=== PATIENT | female | born 1945 | race Caucasian/White ===

== ENCOUNTER → 2020-05-24 14:41 | Outpatient (CLI) | payer MEDICARE, SELFPAY ==
--- NOTE | 2020-05-24 14:50 | CT_ITS ---
STUDY: CT LEFT KNEE LOWER EXTREMITY REASON FOR EXAM: Left knee arthritis, surgical planning. TECHNIQUE: Transaxial CT imaging of the lower extremity was performed. Coronal and sagittal images were reformatted. Individualized dose optimization techniques were used for this CT. COMPARISON: None. FINDINGS: Knee: There are marginal and surface osteophytes of the medial femoral condyle without significant joint space narrowing of the medial femorotibial compartment. There are marginal osteophytes and severe joint space narrowing of the lateral femorotibial compartment (coronal reconstruction 32). There are marginal osteophytes and moderate to severe joint space narrowing of the patellofemoral articulation (sagittal reconstruction 48). Normal proximal tibiofibular articulation. There is a joint effusion. The quadriceps tendon is grossly normal. The patellar tendon is grossly normal. Normal Hoffa''s fat pad. There are intra-articular bodies. Hip: There is mild joint space narrowing of the superior lateral left hip joint (coronal reconstruction 70). There are degenerative changes of the pubic symphysis and left sacroiliac joint. Ankle: Normal tibiotalar and posterior subtalar articulations. There is mild joint space narrowing of the talonavicular articulation (sagittal reconstruction 23). Normal calcaneocuboid articulation. There are marginal osteophytes and joint space narrowing of the navicular-cuneiform articulations (sagittal reconstructions 21-27). There is a plantar calcaneal enthesophyte. CT/Extremity Lower without Contra IMPRESSION: Arthrosis of the left knee with intra-articular bodies and joint effusion. Mild arthrosis of the left hip joint.. Arthrosis of the talonavicular and navicular-cuneiform articulations. Electronically Signed: Robby Ruiz MD at 15:22 EDT Tel , Service support ,
== END ==
PROVIDERS: PCP Internal Medicine; Referring Provider Orthopaedic Surgery; Visit Provider Orthopaedic Surgery
DX: M17.12 Unilateral primary osteoarthritis, left knee (principal)
CPT/HCPCS: 73700

== ENCOUNTER 2020-06-13 09:18 | Observation (INO) | payer MEDICARE, SELFPAY ==
--- NOTE | 2020-05-25 10:14 | EKG12_ITS ---
Test Reason : PRE OP Blood Pressure : / mmHG Vent. Rate : 069 BPM Atrial Rate : 069 BPM P-R Int : 202 ms QRS Dur : 074 ms QT Int : 390 ms P-R-T Axes : 032 -39 040 degrees QTc Int : 417 ms Normal sinus rhythm Left axis deviation Nonspecific ST abnormality Abnormal ECG Confirmed by KENTON RAMOS, CLEOPATRA ([id number]), editor newspaper ALISIA LINDSAY ([id number]) on 05/30/2020 8:26:14 A M Referred By: Barrington Coulter Confirmed By:KARLA FUNG MD
[2020-05-25 11:11] LABS: Absolute Lymphocyte Count 0.74 X10^3/uL (0.83-4.51); Absolute Neutrophil Count 2.3 X10^3/uL (2.0-7.7); Basophil# 0.02 X10^3/uL; Basophil% 0.6 % (0-1); Eosinophil# 0.22 X10^3/uL; Eosinophils% 6.1 % (0-5); Hematocrit 39.6 % (37-47); Hemoglobin 12.9 g/dL (12.0-15.0); Lymphocyte # 0.74 X10^3/ul (4.0); Lymphocyte % 20.4 % (19-41); Mean Corp Hgb Conc 32.6 g/dL (32-36); Mean Corpuscular Hgb 29.6 pg (27.0-32.0); Mean Corpuscular Volume 90.8 fL (81-99); Mean Platelet Vol. 11.2 fl (6.2-12.0); Monocyte# 0.34 X10^3/uL; Monocyte% 9.4 % (0-10); NRBC Flagged by Analyzer 0 % (0-5); Neutrophil % 63.2 % (47-70); Platelet Count 174 K/mm3 (150-450); RBC Distribution Width CV 12.9 % (11.6-14.6); RBC Distribution Width SD 42.8 fl (35.1-43.9); Red Blood Count 4.36 M/mm3 (4.2-5.4); White Blood Count 3.6 K/mm3 (4.4-11.0)
[2020-05-25 11:54] LABS: Anion Gap 3 (5-15); BUN 16 mg/dL (7-18); BUN/Creat Ratio 18.5 RATIO (10-20); Calcium,Total 9.5 mg/dL (8.5-10.1); Chloride 104 mmol/L (98-107); Creatinine, Serum 0.86 mg/dL (0.55-1.02); EST Glomerular Filtration Rate 68 mL/min (>60); Est Glom Filt Rate - Afr Amer 82 mL/min (>60); Glucose 88 mg/dL (74-106); Potassium 3.6 mmol/L (3.5-5.1); Sodium Level 139 mmol/L (136-145)
[2020-06-13] VITALS (12 sets, daily range): BP systolic 110–160; BP diastolic 59–87; PULSE 68–91; RESP 16–18; TEMP 36.2–36.8; O2SAT 95–100; BMI 39.6
[2020-06-13] MEDS: Lactated Ringers 1,000 ML 100 ML IV (05:53)
[2020-06-13] MEDS: Acetaminophen 500 MG Tablet 1000 MG PO ×3 (06:27→21:08)
[2020-06-13] MEDS: Gabapentin 600 MG Tablet PO (06:27)
[2020-06-13 06:40] LABS: Bedside Glucose 91 mg/dL (70-110)
--- NOTE | 2020-06-13 07:30 | KNEE_PTH ---
PATIENT: IZAIAH ARREDONDO LOC: MS3 U#:[id number] AGE/SX: 75/F ROOM: [facility] RE06/13/[address]: Dr. Barrington Coulter DO : 1945 BED: 1 DIS: 06/14/2020 SPEC #: [id number] RECD: 06/13/20 10:39 STATUS: MICHELLE REQ #: [id number] [place]: 06/13/20 07:[address]: Barrington Coulter DEPT: SURGICAL PATHOLOGY RECD BY: Mary Lou Worley ENTERED: 06/13/20 13:20 SP TYPE: TOTAL KNEE OTHR DR: Dr. Bambi Mariscal MD Tissues: Knee, NOS Procedures: Decalcification bone/plaque Surgery Specimen Level IV HEADER OPERATION: ERAS, total knee replacement robotic arm assist PRE-OP DIAGNOSIS: Unilateral primary osteoarthritis left knee TISSUE SUBMITTED: Bone and soft tissue left knee MICROSCOPIC DIAGNOSIS Bone and soft tissue of left knee, total knee resection: Consistent with severe degenerative joint disease. AM:gm 06/16/20 MICROSCOPIC DESCRIPTION Slides are reviewed. GROSS DESCRIPTION Received is one container designated bone and soft tissue left knee. The specimen consists of multiple fragments of mcgregor-yellow bone measuring in aggregate 12 x 11 x 3 cm. A number of bony fragments contain articular surfaces consistent with tibial plateau and femoral condyle and displaying prominent osteophyte formation, eburnation, and bone erosion. Operation Specialist sections are submitted in two cassettes after decalcification. / LAYLA:gm 06/13/20 TC:5 CPT: 68879, 88526
[2020-06-13] MEDS: Cefazolin 2 GM in 0.9% Normal Saline 100 ML IV (07:36)
[2020-06-13] MEDS: Lactated Ringers 1,000 ML 125 ML IV (10:15)
--- NOTE | 2020-06-13 10:32 | OP.PCM_ITS ---
Report of Operation Date of Procedure: 06/13/20 Pre-Operative Diagnosis: OA with valgus deformity left knee Post-Operative Diagnosis: same Surgery/Procedure Performed:: Left TKR internal affairs investigator: Mary Ann Avila Type of Anesthesia:: Spinal Anesthesiologist: Carlos Lai Specimen's removed: bone Estimated Blood Loss (mL): 20 cc - Admit VTE Documentation VTE Present on Admission: No VTE Mechan Device Prophylaxis: SCD's, Thigh High CHERRI Hose VTE Pharm Prophylaxis ordered?: Yes
--- NOTE | 2020-06-13 10:50 | RAD_ITS ---
STUDY: X-RAY - LEFT KNEE REASON FOR EXAM: Female, 75 years old. POST OP TECHNIQUE: 2 view(s) of the knee. COMPARISON: None. FINDINGS: Normal visualized distal femur. Normal visualized proximal tibia and fibula. Normal proximal tibiofibular articulation. The patient is status post total knee replacement. There is good alignment. Postoperative soft tissue changes. RAD/Knee 1 or 2 Views IMPRESSION: Status post total knee replacement. There is good alignment. Postoperative soft tissue changes Electronically Signed: Jone Jackson, at 11:27 EST , Service support ,
[2020-06-13 11:14] LABS: Hematocrit 36.3 % (37-47); Hemoglobin 11.7 g/dL (12.0-15.0); Mean Corp Hgb Conc 32.2 g/dL (32-36); Mean Corpuscular Hgb 29.8 pg (27.0-32.0); Mean Corpuscular Volume 92.6 fL (81-99); Mean Platelet Vol. 10.7 fl (6.2-12.0); Platelet Count 150 K/mm3 (150-450); RBC Distribution Width CV 12.6 % (11.6-14.6); RBC Distribution Width SD 42.5 fl (35.1-43.9); Red Blood Count 3.92 M/mm3 (4.2-5.4); White Blood Count 3.9 K/mm3 (4.4-11.0)
[2020-06-13] MEDS: Senna/Docusate Sodium 1 Tablet 2 TABLET PO ×2 (11:51→21:08)
[2020-06-13] MEDS: hydroCHLOROthiazide 25 MG Tablet PO (11:51)
[2020-06-13] MEDS: Multivitamins,Ther W-Minerals Tablet 1 TABLET PO (11:52)
[2020-06-13] MEDS: Aspirin 81 MG TAB.CHEW PO ×2 (11:52→17:05)
[2020-06-13] MEDS: Calcium Carbonate 500 MG Tablet PO ×2 (12:45→17:05)
[2020-06-13] MEDS: Cefazolin 1 GM/50 ML BAG IV ×2 (13:27→21:08)
[2020-06-13] MEDS: oxyCODONE 5 MG Tablet PO (18:30)
[2020-06-13] MEDS: BENZOCAINE/MENTHOL 1 LOZENGE MUCOUS MEM (21:42)
[2020-06-14 00:35] VITALS: BP 124/54; PULSE 67; RESP 18; TEMP 36.8; O2SAT 96
[2020-06-14] MEDS: oxyCODONE 5 MG Tablet PO ×4 (01:03→14:12)
[2020-06-14 04:25] VITALS: BP 158/79; PULSE 72; RESP 18; TEMP 36.6; O2SAT 97
[2020-06-14] MEDS: Acetaminophen 500 MG Tablet 1000 MG PO ×2 (05:05→14:13)
[2020-06-14 05:58] LABS: Hematocrit 31.6 % (37-47); Hemoglobin 10.3 g/dL (12.0-15.0); Mean Corp Hgb Conc 32.6 g/dL (32-36); Mean Corpuscular Volume 92.1 fL (81-99); Mean Platelet Vol. 11.5 fl (6.2-12.0); Platelet Count 120 K/mm3 (150-450); RBC Distribution Width CV 12.6 % (11.6-14.6); RBC Distribution Width SD 42.2 fl (35.1-43.9); Red Blood Count 3.43 M/mm3 (4.2-5.4); White Blood Count 4.9 K/mm3 (4.4-11.0)
[2020-06-14 06:22] LABS: Anion Gap 5 (5-15); BUN 17 mg/dL (7-18); BUN/Creat Ratio 21.8 RATIO (10-20); Calcium,Total 8.2 mg/dL (8.5-10.1); Chloride 100 mmol/L (98-107); Creatinine, Serum 0.78 mg/dL (0.55-1.02); EST Glomerular Filtration Rate 76 mL/min (>60); Est Glom Filt Rate - Afr Amer 93 mL/min (>60); Estimated Creatinine Clearance 36.68 ml/min; Glucose 119 mg/dL (74-106); Potassium 3.8 mmol/L (3.5-5.1); Sodium Level 134 mmol/L (136-145)
--- NOTE | 2020-06-14 07:46 | PN.ORTHO_ITS ---
Subjective: Patient sitting at bedside eating breakfast. Patient states pain has been very well managed. Patient denies chest pain, shortness of breath, calf pain, nausea vomiting. Patient states she is ready for discharge home. Objective: Dressings clean dry intact. Negative signs or symptoms of DVT. Patient's vitals and labs were reviewed noted in medical records. Patient is afebrile. Patient is neurovascular is otherwise intact. Patient speaking in full sentences with no obvious respiratory distress. - Physical Exam Vitals/I&O's: Vital Signs Temp Pulse Resp BP Pulse Ox 98 F 72 18 158/79 H 97 06/14/20 04:25 06/14/20 04:25 06/14/20 04:25 06/14/20 04:25 06/14/20 04:25 Oxygen Flow Rate (L/min) 6 Oxygen Delivery Method Room Air Weight: 95.3 kg Body Mass Index (BMI) 39.6 Intake and Output for Last 24 Hours 06/12/20 06/13/20 06/14/20 23:59 23:59 23:59 Intake Total 3189.67 / 3189.67 423.75 / 423.75 Output Total 1650 / 1650 Balance 1539.67 / 1539.67 423.75 / 423.75 General: Alert, Oriented x3, Cooperative HEENT: PERRLA Oral: Moist Mucosa Neurological: Cranial nerves II-XII grossly intact Psych/Mental Status: Normal Affect, Alert and oriented to time, place, person, mood and affect Laboratory Results 06/13/20 11:05: WBC 3.9 L, RBC 3.92 L, Hgb 11.7 L, Hct 36.3 L, MCV 92.6, MCH 29.8, MCHC 32.2, RDW Std Deviation 42.5, RDW Coeff of Jero 12.6, Plt Count 150, MPV 10.7 06/14/20 05:05: WBC 4.9, RBC 3.43 L, Hgb 10.3 L, Hct 31.6 L, MCV 92.1, MCH 30.0, MCHC 32.6, RDW Std Deviation 42.2, RDW Coeff of Jero 12.6, Plt Count 120 L, MPV 11.5 06/14/20 05:05: Sodium 134 L, Potassium 3.8, Chloride 100, Carbon Dioxide 29.0, Anion Gap 5, BUN 17, Creatinine 0.78, Estim Creat Clear Calc 36.68, Est GFR (MDRD) Af Amer 93, Est GFR (MDRD) Non-Af 76, BUN/Creatinine Ratio 21.8 H, Glucose 119 H, Calcium 8.2 L Current Medications Acetaminophen (Acetaminophen 500 Mg Tablet) 1,000 mg PO Q8 [facility] Last Admin: 06/14/20 05:05 Dose: 1,000 mg Documented by: Aspirin (Aspirin 81 Mg Tab.Chew) [facility] Last Admin: 06/13/20 17:05 Dose: 81 mg Documented by: Calcium Carbonate (Calcium Carbonate 500 Mg Tablet) [facility] Last Admin: 06/13/20 17:05 Dose: 500 mg Documented by: Hydrochlorothiazide (Hydrochlorothiazide 25 Mg Tablet) 25 mg PO DAILY [facility] Last Admin: 06/13/20 11:51 Dose: 25 mg Documented by: Multivitamins/Minerals (Multivitamins,Ther W-Minerals Tablet) [facility] Last Admin: 06/13/20 11:52 Dose: 1 tablet Documented by: Ondansetron HCl (Ondansetron 4 Mg/2 Ml Vial) 4 mg IV Q8H PRN PRN PRN Reason: NAUSEA Oxycodone HCl (Oxycodone 5 Mg Tablet) 5 - 10 mg PO Q4H PRN PRN PRN Reason: Pain Score 4-10 Last Admin: 06/14/20 05:05 Dose: 10 mg Documented by: Promethazine HCl (Promethazine 25 Mg/Ml Syringe) 12.5 mg IM Q6H PRN PRN; Protocol PRN Reason: NAUSEA/VOMITING Senna/Docusate Sodium (Senna/Docusate Sodium 1 Tablet) 2 tablet PO BID [facility] Last Admin: 06/13/20 21:08 Dose: 2 tablet Documented by: Sodium Chloride (0.9% Saline Lock 10 Ml Syringe) 10 - 40 ml IV UD PRN PRN Reason: SALINE FLUSH Throat Lozenges (Benzocaine/Menthol 1 Lozenge) 1 lozenge MUCOUS MEM Q2H PRN PRN PRN Reason: SORE THROAT Last Admin: 06/13/20 21:42 Dose: 1 lozenge Documented by: Medical Necessity - Tobacco Use Smoking Status: Never smoker Tobacco Use: Non-smoker Assessment/Plan Status post left total knee arthroplasty Plan 1. Continue all pain medications as prescribed 2. Continue physical therapy weight-bear as tolerated with walker 3. Aspirin 81 mg 1 p.o. every 12 hours x30 days for postop DVT prophylaxis 4. Encourage incentive spirometry 5. Discharge home today after p.m. therapy 6. Patient will continue physical therapy at [facility] 7. Follow-up as scheduled, see pink sheet for time and dates
--- NOTE | 2020-06-14 07:53 | DCINST_ITS ---
Discharge Diet: No Restrictions Discharge Activity: May Not Drive, May Shower, Use Walker May shower in (days): 3 Ice area for (Minutes): 20 - each hour while awake. Weight Bearing Status: Weight bearing as tolerated Elevate: Operative Extremity Additional Activity Instructions:: Wear elastic stockings for 2 weeks after your surgery. Call your doctor if your incision/area has: Continuous Slow Oozing, Sudden Increased Bleeding, Increased Pain/ Swelling, Increased Redness, Foul Smelling Discharge Call your doctor if you observe: Fever of 101 or Higher, Coldness, Increased Pain - in extremity, Numbness or Tingling, Change in Color, Calf discomfort, Uncontrolled pain Change Dressing in (Days):: 0 - and daily as needed. Remove Dressing in (days):: 8 Cleanse incision/area with: Soap & Water Allergies/Adverse Reactions: Allergies valdecoxib [From Bextra] Adverse Reaction (Verified 06/13/20 05:48) elevated bp Medications to take at Discharge Calcium Carbonate [Calcium] 600 mg PO BID 05/30/20 Flaxseed Oil [Flax Oil] 1,000 mg PO DAILY 05/30/20 Gluc Wren/Chondro Wren A/Vit C/Mn [Glucosamine-Chondroitin Sftgl] 1 ea PO DAILY 05/30/20 Hydrochlorothiazide [Hctz] 25 mg PO DAILY 05/30/20 Multivitamin with Minerals [Multiple Vitamin] 1 ea PO DAILY 05/30/20 Acetaminophen [Tylenol] 1,000 mg PO Q8 #90 tab 06/14/20 Aspirin [Aspirin, Baby] 81 mg PO BIDCM #60 tab.chew 06/14/20 Oxycodone [Oxyir] 5 - 10 mg PO Q4H PRN PRN 7 Days #84 tablet 06/14/20 Senna/Docusate Sodium [Senokot-S] 2 tablet PO BID tablet 06/14/20 The following prescriptions were given: Aspirin [Aspirin, Baby] 81 mg PO BIDCM #60 tab.chew Transmission Status: Pending to [facility] Oxycodone [Oxyir] 5 - 10 mg PO Q4H PRN PRN 7 Days #84 tablet PRN Reason: Pain Score 4-10 Transmission Status: Sent to [facility] Acetaminophen [Tylenol] 1,000 mg PO Q8 #90 tab Transmission Status: Pending to [facility] Primary Care Physician: Bambi Mariscal MD [Primary Care Provider] - Test Results: Test results from this visit will be discussed in further detail at your follow- up appointment, if applicable. Please Follow Up With: Emory Bynum PAAmanC When: as scheduled (see pink sheet)
[2020-06-14] MEDS: Multivitamins,Ther W-Minerals Tablet 1 TABLET PO (07:59)
[2020-06-14] MEDS: Aspirin 81 MG TAB.CHEW PO (07:59)
[2020-06-14] MEDS: Calcium Carbonate 500 MG Tablet PO (07:59)
[2020-06-14] MEDS: hydroCHLOROthiazide 25 MG Tablet PO (09:06)
[2020-06-14 09:11] VITALS: BP 143/75; PULSE 76; RESP 14; TEMP 36.8; O2SAT 94
--- NOTE | 2020-06-14 12:10 | CASEMGMT ---
RN ANCELMO Face to Face with patient for initial transition planning/care coordination assessment. RN CM introduced self and role at [facility]. Patient lying in bed, alert and oriented. Patient willing to participate in assessment and is able to answer all questions appropriately. Care providers, pharmacy, and demographics verified. Patient wishes to discharge home and is setup with [facility] for outpatient therapy. Patient states she has no further needs or concerns at this time. CM to follow for discharge planning needs that may arise. PCP: Davey Specialists: kristen Coulter Pharmacy: [facility] Insurance: [employer] [facility] Prescription Benefit: yes Living Will/HPOA: giovani, filiberto Pinzon LNOK: sons, Daughter Living Arrangements: Patient lives alone in a 2 story home with bed and bath on first floor. 3 steps and railing to enter the home. Patient states she was independent prior to surgery. Transportation: Daughter DME/C: Patient state she has shower chair, grab bars, and walker. Patient is scheduled for outpatient therapy at [facility]. Disposition Plan: Patient to discharge home with outpatient therapy, family support, and follow-up plans in place. Ally BURDICK, RN, CM
== END 2020-06-14 15:08 | disposition home or self-care (01) ==
LOC: SDC 13:35 → MS3 13:35
PROVIDERS: Anesthesiology; Physician Assistant; Admitting Provider Orthopaedic Surgery; PCP Internal Medicine; Referring Provider Orthopaedic Surgery; Visit Provider Orthopaedic Surgery
PROC: 0SRD0JZ Replacement of Left Knee Joint with Synthetic Substitute, Open Approach (ICD-10-PCS; CPT 27447; principal; 2020-06-13 07:00)
DX: M21.062 Valgus deformity, not elsewhere classified, left knee (principal); M17.12 Unilateral primary osteoarthritis, left knee; Z20.828 Contact with and (suspected) exposure to other viral communicable diseases; Z79.899 Other long term (current) drug therapy; Z79.82 Long term (current) use of aspirin; I10 Essential (primary) hypertension
CPT/HCPCS: 01400; 27447; 64447; S2900; 36415; 73560; 80048; 82962; 83735; 85025; 85027; 87081; 87635; 88305; 88311; 93005; 96365; 96366; 97110; 97116; 97161; 97166; 97530; 97535; 99218; 99251; C1776; C9803; J7120; G0378; G0379; G0463; U0003

== ENCOUNTER → 2020-06-20 15:27 | Outpatient (CLI) | payer MEDICARE, SELFPAY ==
[2020-06-13 11:36] VITALS: BMI 39.6
--- NOTE | 2020-06-20 15:29 | VDLE_ITS ---
Reason For Study: Pain in LLE Procedure LEFT This is a venous duplex using B-mode, color GSV is normal. flow and spectral Doppler. CFV is compressible, spontaneous, phasic, Exam performed in department. competent, and demonstrates normal A preliminary report was called and/or faxed augmentation. to [facility]. FV is compressible, spontaneous, phasic, competent and demonstrates normal augmentation. POP V is compressible, spontaneous, phasic, competent and demonstrates normal augmentation. T/P Trunk is compressible. PTV is compressible. LT PerV is compressible. Interpretation Summary Deep veins of the left lower extremity are patent and compressible segmentally. There is no evidence of left lower extremity deep vein thrombosis. Valvular competence appears intact within the proximal deep venous system on the left . The left great saphenous vein appears patent and compressible segmentally. Ordering Physician: Barrington Coulter Referring Physician: Bambi Mariscal M.D. Performed By: Ally Klein RVT
== END ==
PROVIDERS: PCP Internal Medicine; Referring Provider Orthopaedic Surgery; Visit Provider Orthopaedic Surgery
DX: M79.662 Pain in left lower leg (principal)
CPT/HCPCS: 93971

== ENCOUNTER → 2021-05-17 13:58 | Outpatient (CLI) | payer MEDICARE, SELFPAY ==
--- NOTE | 2021-05-17 15:02 | NEURO ---
NCS and/or EMG Patient Report Ordering Doctor: Bambi Mariscal DATE OF SERVICE: 05/17/21 Radha presents for electrodiagnostic testing of the upper limbs. She reports numbness and tingling in the upper limbs. Electrodiagnostic testing: Median motor nerve demonstrates prolonged distal latency with reduced reduced amplitude on the right side. Median motor conduction velocity decreased bilaterally. Normal ulnar motor response bilaterally. Prolonged median F wave bilaterally. Absent right median sensory latency at the wrist and palm. Prolonged left median sensory latency. Needle EMG testing reveals no evidence of denervation in any muscles tested. Motor unit action potentials of normal amplitude and duration. Electrodiagnostic impression: This is an abnormal study in the upper limbs 1. Electrodiagnostic findings demonstrate bilateral median mononeuropathy. This is consistent with a moderate to advanced left carpal tunnel syndrome and an advanced right carpal tunnel syndrome.
== END ==
PROVIDERS: PCP Internal Medicine; Referring Provider Internal Medicine; Visit Provider Internal Medicine
DX: G56.03 Carpal tunnel syndrome, bilateral upper limbs (principal)
CPT/HCPCS: 95886; 95912